=== PATIENT | female | born 1990 | race Caucasian/White ===

== ENCOUNTER → 2018-03-05 10:02 | Outpatient (CLI) | payer OTHER, SELFPAY | PROVIDERS: PCP Internal Medicine; Visit Provider Physician Assistant | DX: J02.9 Acute pharyngitis, unspecified (principal) | CPT/HCPCS: 87070; 87077; 87147 ==

== ENCOUNTER → 2018-07-12 09:27 | Outpatient (CLI) | payer OTHER, MEDICAID, SELFPAY ==
[2018-07-12 10:11] LABS: Add Manual Diff / Slide Review NO; Basophils Absolute Auto 100 /uL (0-100); Basophils Percent Auto 0.6 % (0-2); Eosinophils Absolute Auto 100 /uL (0-450); Eosinophils Percent Auto 0.9 % (2-4); Hematocrit 38.8 % (36-46); Hemoglobin 13.4 g/dL (12.0-16.0); Lymphocytes Absolute Auto 1900 /uL (1100-4500); Mean Corpuscular HGB Conc 34.6 % (30-36); Mean Corpuscular Hemoglobin 31.7 PG (26-34); Mean Corpuscular Volume 91.4 fL (80-100); Monocytes Absolute Auto 600 /uL (0-900); Monocytes Percent Auto 6.4 % (3-14); Neutrophils Absolute Auto 7300 /uL (1500-7000); Neutrophils Percent Auto 73.1 % (50-75); Platelet Count 226 X10^3/uL (150-400); Red Blood Cell Count 4.25 X10^6/uL (4.0-5.2); Red Cell Distribution Width 12.3 % (11.6-14.8); White Blood Cell Count 9.9 X10^3/uL (4.5-11.0)
[2018-07-12 10:37] LABS: Appearance Urine UA CLEAR; Bilirubin Urine UA NEGATIVE (NEGATIVE); Color Urine UA YELLOW; Glucose Urine UA NEGATIVE (Negative); Ketones Urine UA NEGATIVE (NEGATIVE); Leukocyte Esterase Urine UA NEGATIVE (NEGATIVE); Nitrite Urine UA NEGATIVE (Negative); Occult Blood Urine UA NEGATIVE (Negative); Protein Urine UA NEGATIVE (Negative); Specific Gravity Urine UA <=1.005 (1.000-1.035); Urobilinogen Urine UA 0.2 E.U./dL (0.2); pH Urine UA 6.5 (4.5-8.0)
[2018-07-12 11:03] LABS: Hepatitis B Surface Antigen NEGATIVE s/c (NEGATIVE); Rubella Antibody IgG 24.3 IU/mL (>15)
[2018-07-12 11:11] LABS: HIV 1 and 2 Antibody NEGATIVE (NEGATIVE); Hep C Virus Ab w/Reflex Quant NEGATIVE s/c (NEGATIVE)
[2018-07-13 15:06] LABS: RPR Screen Nonreactive (Nonreactive)
== END ==
PROVIDERS: PCP Internal Medicine; Visit Provider Obstetrics & Gynecology
DX: Z34.01 Encounter for supervision of normal first pregnancy, first trimester (principal)
CPT/HCPCS: 36415; 80055; 81003; 86703; 86787; 86803; 86850; 86900; 86901; 87077; 87086; 87147; 87186

== ENCOUNTER → 2018-08-24 11:53 | Outpatient (CLI) | payer OTHER, MEDICAID, SELFPAY ==
[2018-08-24 11:58] LABS: Bacteria Urine None Seen; WBC Urine None Seen (0-5/HPF)
[2018-08-24 12:29] LABS: Appearance Urine UA CLEAR; Bilirubin Urine UA NEGATIVE (NEGATIVE); Color Urine UA YELLOW; Glucose Urine UA NEGATIVE (Negative); Ketones Urine UA NEGATIVE (NEGATIVE); Leukocyte Esterase Urine UA NEGATIVE (NEGATIVE); Nitrite Urine UA NEGATIVE (Negative); Occult Blood Urine UA 1+ (Negative); Protein Urine UA NEGATIVE (Negative); Specific Gravity Urine UA <=1.005 (1.000-1.035); Urobilinogen Urine UA 0.2 E.U./dL (0.2)
[2018-08-24 12:57] LABS: Amorphous Sediment Urine 1+; Culture Indicated Urine Cult Not Indicated; RBC Urine 0-1/HPF (0-5/HPF); Squamous Epithelial Cell Urine 0-1 /HPF
== END ==
PROVIDERS: PCP Internal Medicine; Visit Provider Obstetrics & Gynecology
DX: Z34.92 Encounter for supervision of normal pregnancy, unspecified, second trimester (principal); R35.0 Frequency of micturition
CPT/HCPCS: 81001

== ENCOUNTER → 2018-09-06 16:54 | Outpatient (CLI) | payer OTHER, MEDICAID, SELFPAY ==
[2018-09-10 14:08] LABS: AFP, Serum 53.4 ng/mL; Calc Gestational Age 17.1; Cigarette Smoker N; Donated Egg NOT GIVEN; Donor Egg Age NOT GIVEN; Estriol, Free 1.17 ng/mL; Inhibin A, Dimeric 193 pg/mL; Maternal Ethnicity CAUCASIAN; Maternal Weight 141 lbs; Number of Fetuses NOT GIVEN; Previous Pregnancy Down Syndro NOT GIVEN; hCG, MoM 1.27; hCG, Serum 36.3 IU/mL
== END ==
PROVIDERS: Visit Provider Obstetrics & Gynecology
DX: Z34.82 Encounter for supervision of other normal pregnancy, second trimester (principal); Z3A.17 17 weeks gestation of pregnancy
CPT/HCPCS: 36415; 82105; 82677; 84702; 86336

== ENCOUNTER → 2018-09-27 15:10 | Outpatient (CLI) | payer OTHER, MEDICAID, SELFPAY ==
--- NOTE | 2018-09-27 15:11 | DI.US.S_ITS ---
PROCEDURE: US OB >= 14 WEEKS FETUS INDICATIONS: ANATOMY SURVEY OUTSIDE/PRIOR DATING DATA: Last menstrual period (LMP): 05/09/18. LMP-based estimated date of delivery (SHAYLEE): 02/13/19. First dating scan (date and location): 09/27/18. Estimated date of delivery (SHAYLEE) from first dating scan: 02/11/19. TECHNIQUE: Real-time scanning was performed of the fetus, with image documentation and biometric measurements. Endovaginal scanning: No [facility]PARISON: [facility], , OB >= 14 WEEKS FETUS, 09/06/2018, 16:46. FINDINGS: General: A single living intrauterine gestation is present. Presentation: Vertex. Placenta: Placental position is anterior, without previa. Amniotic fluid index: 15.0 cm, normal range is 5-24 cm. heart rate: 157 beats per minute. Maternal cervical canal: 4.6 cm long. Normal lower limit is 2.5 cm. Report any funneling of internal cervical os: % of canal length, shape (U or V), width or any U-shaped funneling. biometrics: Biparietal diameter: 19 weeks 6 days Head circumference: 20 weeks 3 days Abdominal circumference: 20 weeks 3 days Femur length: 20 weeks 3 days Estimated gestational age from initial scan: not applicable. Composite gestational age from present scan: 20 weeks 3 days Estimated weight and percentile: 353 g; 62nd percentile Measurement variability for biometric dating: +/- 7 days from 14 weeks to 15 weeks 6 days gestation, +/- 10 days from 16 weeks to 21 weeks 6 days gestation, +/- 2 weeks from 22 weeks to 27 weeks 6 days gestation, +/- 3 weeks for 28 weeks gestation or later. weight reference: 4500 g or EFW >90/95% is considered macrosomia or large for gestational age. EFW <10% is small for gestational age. EFW 5% or less is considered intra-uterine growth restriction. Anatomic survey: Neuro: Ventricles are non-dilated at less than 10 mm. Cisterna magna is normal at 3-11 mm. Cerebellum is normal in size and morphology. Nuchal skin fold: Normal at less than 6 mm between 14-21 weeks gestational age. Face: Nose and lips, facial profile are normal. Spine: No evidence for spina bifida. Heart: 4-chambered heart is present, with normal ventricular outflow tracts. Diaphragm: Diaphragm is intact. Stomach: Left-sided stomach is present. Kidneys: No hydronephrosis. Normal is less than 5 mm in 2nd trimester, less than 7 mm in 3rd trimester. Cord: 3-vessel cord has orthotopic insertion. Bladder: Normal in size. Extremities: All 4 extremities identified. IMPRESSION: 1. Single living IUP with mean composite gestational age of 20 weeks 3 days corresponding to ultrasound SHAYLEE of 02/11/19 2. Normal anatomic survey. Dictated by: Moshe Combs [facility] Interpreted: Lilian Frazier MD on 09/27/2018 at 17:06 Approved by: Lilian Frazier MD, PhD on 09/27/2018 at 18:04
== END ==
PROVIDERS: Visit Provider Obstetrics & Gynecology
DX: Z34.82 Encounter for supervision of other normal pregnancy, second trimester (principal); Z3A.20 20 weeks gestation of pregnancy
CPT/HCPCS: 76811

== ENCOUNTER → 2018-11-02 15:34 | Outpatient (CLI) | payer OTHER, MEDICAID, SELFPAY ==
[2018-11-02 17:55] LABS: GTT (PREG) 1 Hour PP 50gm Dose 88 mg/dL (76-139)
== END ==
PROVIDERS: Visit Provider Obstetrics & Gynecology
DX: Z34.82 Encounter for supervision of other normal pregnancy, second trimester (principal)
CPT/HCPCS: 36415; 82950; 85014; 85018; 86850

== ENCOUNTER 2018-11-10 16:28 | Outpatient (CLI) | payer OTHER, MEDICAID, SELFPAY | END 2018-11-10 17:35 | disposition home or self-care (01) | LOC: OB 11-11 15:29 | PROVIDERS: Visit Provider Obstetrics & Gynecology | DX: O36.8120 Decreased fetal movements, second trimester, not applicable or unspecified (principal); Z3A.26 26 weeks gestation of pregnancy | CPT/HCPCS: 59025; G0378; G0379 ==

== ENCOUNTER → 2019-01-18 09:40 | Outpatient (CLI) | payer OTHER, MEDICAID, SELFPAY ==
[2019-01-19 10:05] LABS: Strep Grp B PCR NEG for Grp B Strep
== END ==
PROVIDERS: Visit Provider Obstetrics & Gynecology
DX: Z34.83 Encounter for supervision of other normal pregnancy, third trimester (principal); Z36.85 Encounter for antenatal screening for Streptococcus B
CPT/HCPCS: 87653

== ENCOUNTER 2019-01-21 02:32 | Observation (INO) | payer OTHER, MEDICAID, SELFPAY ==
[2019-01-21] MEDS: NIFEdipine 10 MG CAPSULE PO ×4 (03:36→04:37)
--- NOTE | 2019-01-21 12:40 | P.TNLD_ITS ---
Visit Information Visit Information Date of evaluation: 01/21/19 Primary OB Provider: Mikala Nicole On-call OB Provider: Mikala Nicole Reason for Evaluation: Yes pre-term labor [facility] Surgical History (Updated 07/19/18 @ 05:20 by Mikala Nicole MD) History of third molar tooth extraction Family History (Updated 12/26/15 @ 00:00 by Conversion Provider) Father Age: 55 Diabetes mellitus Hypertension Grandmother Cancer Mother Age: 57 Hypertension High cholesterol Grandfather Heart disease Grandmother Diabetes mellitus Heart disease Stroke Social History Smoking Status: Never smoker Family History (Updated 12/26/15 @ 00:00 by Conversion Provider) Father Age: 55 Diabetes mellitus Hypertension Grandmother Cancer Mother Age: 57 Hypertension High cholesterol Grandfather Heart disease Grandmother Diabetes mellitus Heart disease Stroke Social History Smoking Status: Never smoker Evaluation Evaluation Baseline heart rate: 145 Variability: Moderate (11-25) monitor accelerations: Present monitor decelerations: Absent Contraction Frequency (minutes): 6 Uterine Contraction Intensity: Mild Cervical dilation (cm): 2 Cervical effacement (%): 75 Diagnosis, Plan/Disposition Final Diagnosis (1) labor: Current Visit: No Status: Acute Plan/Disposition Plan: Assessment: 28 year 2 para 1 at 34 weeks gestation with labor Plan: Patient discharged home after nifedipine protocol and contractions spacing Follow-up as scheduled for her OB appointment OB Disposition: home
== END 2019-01-21 06:02 | disposition home or self-care (01) ==
LOC: LABOR 02:34
PROVIDERS: Admitting Provider Obstetrics & Gynecology; Visit Provider Obstetrics & Gynecology
DX: O60.03 Preterm labor without delivery, third trimester (principal); Z3A.34 34 weeks gestation of pregnancy
CPT/HCPCS: 59025; 59050; G0378; G0379

== ENCOUNTER 2019-02-03 05:50 | Inpatient (IN) | payer OTHER, MEDICAID, SELFPAY ==
[2019-02-03] VITALS (7 sets, daily range): BP systolic 116–130; BP diastolic 60–77; PULSE 58–70; RESP 11–16; TEMP 36.2–36.7; O2SAT 99–100
[2019-02-03] MEDS: LACTATED RINGERS 1,000 ML 999 ML IV (06:34)
[2019-02-03 07:07] LABS: Add Manual Diff / Slide Review NO; Basophils Absolute Auto 100 /uL (0-100); Basophils Percent Auto 0.6 % (0-2); Eosinophils Absolute Auto 100 /uL (0-450); Eosinophils Percent Auto 1.2 % (2-4); Hematocrit 40.9 % (36-46); Hemoglobin 14.1 g/dL (12.0-16.0); Lymphocytes Absolute Auto 2600 /uL (1100-4500); Lymphocytes Percent Auto 25.1 % (25-40); Mean Corpuscular HGB Conc 34.4 % (30-36); Mean Corpuscular Hemoglobin 31.4 PG (26-34); Mean Corpuscular Volume 91.3 fL (80-100); Monocytes Absolute Auto 800 /uL (0-900); Monocytes Percent Auto 7.6 % (3-14); Neutrophils Absolute Auto 6900 /uL (1500-7000); Neutrophils Percent Auto 65.5 % (50-75); Platelet Count 163 X10^3/uL (150-400); Red Blood Cell Count 4.48 X10^6/uL (4.0-5.2); Red Cell Distribution Width 13.7 % (11.6-14.8); White Blood Cell Count 10.5 X10^3/uL (4.5-11.0)
--- NOTE | 2019-02-03 07:21 | SUR.OPER ---
Supine on Padded OR bed, head on pillow, safety belt at thigh, arms secured on padded arm boards at <90 degrees abduction. Bump under right buttock. Legs uncrossed with pillow under knees, gel pad to heels, tape over blanket to lower legs.
[2019-02-03] MEDS: CITRIC ACID/SODIUM CITRATE 15 ML SOLUTION 30 ML PO (07:45)
[2019-02-03] MEDS: CEFAZOLIN 2 GM/100 ML FROZ.PIGGY IV (07:55)
--- NOTE | 2019-02-03 08:29 | SUR.OPER ---
Viable male born at 08:29. Cord blood x2 and placenta sent with L&D RN.
[2019-02-03] MEDS: ONDANSETRON 4 MG/2 ML INJ IV ×3 (09:32→20:51)
--- NOTE | 2019-02-03 09:44 | P.OP_ITS ---
Operative Date/Time/Diagnoses Date of procedure: 02/03/19 Time of procedure: 09:44 Pre-op diagnosis: Previous section Estimated gestational age of 39 weeks Post-op diagnosis: same Procedure & Clinicians Procedure: Procedures Operation Date: 02/03/19 07:45 Actual Procedures Side Surgeon p Section- Repeat Mikala Nicole MD Indications: Previous section Estimated gestational age of 39 weeks Surgeon: Mikala Nicole Department Assistant: Kristen Taylor Anesthesia Type: Spinal (With Duramorph) Operative Notes Findings: Live male infant in the direct occiput anterior presentation Normal uterus, and ovaries Left tube with a paratubal cyst Normal right 2 Closure Type: primary Specimen(s): other (Cord bloods, placenta, left paratubal cyst) Applied: catheter Estimated blood loss (mL): 500 Blood products transfused: none Procedure in detail: The patient was taken to the operating room where she was placed in the seated position. Spinal anesthesia was administered. She was then placed in the dorsal supine position with a leftward tilt. She was prepped and draped in the usual sterile fashion. A timeout was performed. After spinal analgesia was found to be adequate, an elliptical incision was made around the previous incision and the incision was excised. The incision was then carried through to the underlying layer fascia. The fascia was nicked in the midline, and the incision extended bilaterally with the Mercado scissors. The superior aspect of the fascial incision was grasped with a [place] clamps, elevated, and the underlying rectus muscles dissected off sharply and bluntly. Attention was then turned to the inferior aspect of this incision which in a similar fashion was grasped with a [place] clamps, elevated, and the underlying rectus muscles di ssected off sharply and bluntly. The rectus muscles were in the midline. The peritoneum was identified, grasped between 2 hemostats, and entered sharply with the Metzenbaum scissors. This incision was extended superiorly and inferiorly with good visualization of the bladder. The bladder blade was inserted. The vesicouterine peritoneum was identified, grasped with the pickup, and entered sharply with the Metzenbaum scissors. This incision was extended bilaterally, and the bladder flap was created digitally. The bladder blade was reinserted. The lower uterine segment was incised in a transverse fashion with the scalpel. Upon entering the amniotic sac there was a small amount of clear amniotic fluid. The infant's head was delivered without difficulty. The nose and mouth were suctioned with bulb suction. The remainder of the body delivered without difficulty. The cord was double clamped and cut. The was handed off to waiting RN and RT. The placenta was delivered manually. The uterus was cleared of all clots and debris. The uterine incision was repaired with #1 chromic in a running interlocking fashion, and a second layer the same suture was used for an imbricating layer. Hemostasis was achieved. The tubes and ovaries were examined. There was a 2 cm x 2 cm left paratubal cyst and this was removed with the Bovie. Otherwise the tubes and ovaries were normal. The gutters were cleared of all clots and debris. The bladder flap was reapproximated using 2-0 Vicryl in a running fashion. The parietal peritoneum was closed using 2-0 Vicryl in a running fashion. The fascia was reapproximated using 0 Vicryl in a running fashion. Subcutaneous layer was copiously irrigated with warm normal saline. 3 simple interrupted sutures of 3-0 Vicryl were placed to reapproximate the subcutaneous layer. The skin was closed with 4-0 undyed Vicryl in a subcuticular fashion. Steri-Strips were placed. An Aquacel dressing was placed. The uterus was expressed of a small amount of old blood. Sponge, lap, and instrument counts were correct ?-2. The patient tolerated the procedure well, and was taken to PACU in stable condition. Complications: none Post-operative Condition: stable Disposition: PACU Plan for aftercare: To the center after recovery
[2019-02-03] MEDS: LACTATED RINGERS 1,000 ML 42 ML IV (09:46)
[2019-02-03] MEDS: METOCLOPRAMIDE 10 MG/2 ML INJ IV ×3 (09:50→22:01)
[2019-02-03] MEDS: KETOROLAC 30 MG/ML VIAL IV ×2 (15:03→20:52)
[2019-02-03] MEDS: LANOLIN OINT 7 GM 1 APPLIC TOP (15:09)
[2019-02-03] MEDS: DEXTROSE 5%-NS W/KCL 20MEQ 1,000 ML 100 MEQ IV (15:12)
[2019-02-03] MEDS: LACTATED RINGERS 1,000 ML 125 ML IV (19:50)
[2019-02-03 20:09] LABS: Blood Urea Nitrogen 6 mg/dL (7-17); Calcium 8.5 mg/dL (8.4-10.2); Carbon Dioxide 26 mmol/L (22-32); Chloride 104 mmol/L (98-107); Estimated Glomerular Filt Rate > 60.0 mL/min (>60); Glucose 98 mg/dL (70-100); HEMOLYSIS < 15 (0-50); Sodium 136 mmol/L (137-145)
[2019-02-03] MEDS: CITRIC ACID/SODIUM CITRATE 15 ML SOLUTION PO ×2 (20:21→20:51)
[2019-02-03] MEDS: SCOPOLAMINE 1 PATCH TOP (20:52)
[2019-02-03] MEDS: NALBUPHINE 20 MG/ML AMPUL 5 MG IV (22:14)
[2019-02-04] MEDS: ONDANSETRON 4 MG/2 ML INJ IV (03:20)
[2019-02-04] MEDS: KETOROLAC 30 MG/ML VIAL IV (03:20)
[2019-02-04] MEDS: NALBUPHINE 20 MG/ML AMPUL 5 MG IV (03:20)
[2019-02-04 06:48] LABS: Hematocrit 36.1 % (36-46); Hemoglobin 12.4 g/dL (12.0-16.0)
--- NOTE | 2019-02-04 08:06 | PM.OBDS.1 ---
Discharge Providers Provider Date of admission: 02/03/19 05:50 Discharge Date: 02/04/19 Consults: 02/03/19 10:28 Consult to Asbestos Textile Supervisor Routine Comment: Discharge provider: Kristen Taylor MD Summary Hospital Course Date Patient Seen: 02/04/19 Time Patient Seen: 08:17 Procedures: Repeat low-transverse section Peripartum Data Delivery Method: Section (Prior ) Procedures: Repeat low-transverse section complications: none [place] 1: Gender: Male Disposition of : home Discharge Diagnosis (1) Delivery by section: Status: Acute Status at Discharge Cognitive/behavioral status at discharge: oriented Functional status at discharge: independent ambulation Overall status at discharge: patient is progressing back to baseline Time Spent with Patient Time attestation: Total time spent providing and/or coordinating discharge services: Time spent: Less than 30 minutes Objective Labs Result Diagrams: 02/04/19 06:25 02/03/19 19:52 Labs: Laboratory Results - last 24 hr 02/03/19 02/03/19 02/04/19 06:30 19:52 06:25 Hgb 12.4 Hct 36.1 Sodium 136 L Potassium 4.0 Chloride 104 Carbon Dioxide 26 BUN 6 L Creatinine 0.50 L Estimated GFR > 60.0 BUN/Creatinine Ratio 12.0 Glucose 98 Calcium 8.5 Blood Type O Negative Antibody Screen Positive Antibody Identification Anti-D Exam Vital Signs (past 8 hours): Blood pressure 118/72, pulse 65, temperature 98.3? Oxygen Delivery Method Room Air Narrative Exam Narrative: Patient's abdomen is soft, nontender. Minimal distention. Uterus is firm, at U, minimally tender. Dressing is dry. Extremities with trace edema and nontender. Discharge Plan Discharge Plan Patient Disposition: Home Discharge Med Rec/Prescriptions Prescriptions: New oxycodone-acetaminophen 5-325 mg Tablet 2 tab PO Q4HR PRN (Reason: Pain, Severe (7-10)) Qty: 30 RF: 0 ibuprofen 600 mg Tablet 600 mg PO Q6HR PRN (Reason: As Needed For Fever/Mild Pain) Qty: 30 RF: 0 docusate sodium 250 mg Capsule 250 mg PO DAILY Qty: 14 RF: 0 Continued 1 tab tablet 1 tab PO DAILY RF: 0 Follow up/Referrals: Mikala Nicole MD [Physician] - 1 Week ( remove aquacel) Provider Discharge Instructions Diet: Regular Activity: nothing in vagina, do not lift over 20 pounds for 4 weeks Skin/Wound/Dressing Care Report to your healthcare provider any signs of infection, such as:: chills, fever and increased pain Dressing: leave dressing in place for 1 week
[2019-02-04] MEDS: DOCUSATE 250 MG CAPSULE PO (08:53)
[2019-02-04] MEDS: IBUPROFEN 600 MG TABLET PO ×3 (08:53→23:00)
[2019-02-04] MEDS: PRENATAL VIT,CALC/IRON/FOLIC 1 TABLET 1 TAB PO (08:53)
--- NOTE | 2019-02-04 10:40 | P.PN_ITS ---
Subjective Subjective Date Patient Seen: 02/04/19 Time Patient Seen: 10:40 Interval history: Patient is postoperative day 1. Repeat section. She has been able to urinate since removing her catheter. Her pain is under control. She was having nausea and vomiting yesterday but it is finally improving. Breast-feeding is going well. Exam Vital Signs (past 8 hours): Blood pressure 118/72, pulse 65, temperature 98.3? Oxygen Delivery Method Room Air Narrative Exam Narrative: Abdomen is soft, nontender. Uterus is firm, at U, appropriately tender. Dressing is dry. Mild lochia. Extremities without edema and nontende r. Objective Labs Result Diagrams: 02/04/19 06:25 02/03/19 19:52 Labs: Laboratory Results - last 24 hr 02/03/19 02/04/19 19:52 06:25 Hgb 12.4 Hct 36.1 Sodium 136 L Potassium 4.0 Chloride 104 Carbon Dioxide 26 BUN 6 L Creatinine 0.50 L Estimated GFR > 60.0 BUN/Creatinine Ratio 12.0 Glucose 98 Calcium 8.5 Assessment & Plan Assessment and plan (1) Delivery by section: Current visit: Yes Status: Acute (2) Previous section: Current visit: No Status: Chronic Assessment & Plan narrative: Patient is doing well 1st day post repeat section. Routine post section care. Likely home in a.m.. Time Spent With Patient Time with patient: less than 15 minutes
[2019-02-05] MEDS: IBUPROFEN 600 MG TABLET PO (06:13)
[2019-02-05 07:23] VITALS: BP 120/77; PULSE 58; RESP 12; TEMP 36.4
[2019-02-05] MEDS: PRENATAL VIT,CALC/IRON/FOLIC 1 TABLET 1 TAB PO (08:38)
[2019-02-05] MEDS: OXYCODONE/ACETAMINOPHEN 5/325 TABLET 2 TAB PO (08:38)
[2019-02-05] MEDS: DOCUSATE 250 MG CAPSULE PO (08:38)
--- NOTE | 2019-02-05 09:13 | P.DS_ITS ---
Discharge Providers Provider Date of admission: 02/03/19 05:50 Discharge Date: 02/05/19 Consults: 02/03/19 10:28 Consult to Staff Genetic Counselor Routine Comment: Discharge provider: Kristen Taylor MD Summary Hospital Course Date Patient Seen: 02/05/19 Time Patient Seen: 09:15 Procedures: Repeat low-transverse section Hospital Course: Patient was admitted for repeat low-transverse section. She did well . She is passing gas, urinating and ambulating well. Her pain is under control. Peripartum Data Infant Delivery Method: Section (Repeat) Procedures: Repeat low-transverse section complications: none [employer] 1: Gender: Male Disposition of : home Discharge Diagnosis (1) Delivery by section: Status: Acute (2) Previous section: Status: Chronic Status at Discharge Cognitive/behavioral status at discharge: oriented Functional status at discharge: independent ambulation Overall status at discharge: patient is progressing back to baseline Time Spent with Patient Time attestation: Total time spent providing and/or coordinating discharge services: Objective Labs Result Diagrams: 02/04/19 06:25 02/03/19 19:52 Exam Vital Signs (past 8 hours): Blood pressure 109/68, pulse of 56, temperature 98.1? Oxygen Delivery Method Room Air Narrative Exam Narrative: Abdomen is soft, nontender. Uterus is firm, U -1, nontender. Dressing is dry. Mild lochia. Extremities without edema and nontender. Patient is O negative but the baby is also O negative so no RhoGAM indicated. Patient is rubella immune and received the Tdap in the 3rd trimester. Discharge Plan Discharge Plan Patient Disposition: Home Discharge Med Rec/Prescriptions Prescriptions: New oxycodone-acetaminophen 5-325 mg Tablet 2 tab PO Q4HR PRN (Reason: Pain, Severe (7-10)) Qty: 30 RF: 0 ibuprofen 600 mg Tablet 600 mg PO Q6HR PRN (Reason: As Needed For Fever/Mild Pain) Qty: 30 RF: 0 docusate sodium 250 mg Capsule 250 mg PO DAILY Qty: 14 RF: 0 Continued 1 tab tablet 1 tab PO DAILY RF: 0 Follow up/Referrals: Mikala Nicole MD [Physician] - 1 Week ( remove aquacel) Provider Discharge Instructions Diet: Regular Activity: nothing in vagina, do not lift over 20 pounds for 4 weeks Skin/Wound/Dressing Care Report to your healthcare provider any signs of infection, such as:: chills, fever and increased pain Dressing: leave dressing in place for 1 week
== END 2019-02-05 12:23 | disposition home or self-care (01) | DRG 540 ==
PROVIDERS: Admitting Provider Obstetrics & Gynecology; Visit Provider Obstetrics & Gynecology
PROC: 10D00Z1 Extraction of Products of Conception, Low, Open Approach (ICD-10-PCS; CPT 59514; principal; 2019-02-03 07:45)
DX: O34.219 Maternal care for unspecified type scar from previous cesarean delivery (principal); Z3A.39 39 weeks gestation of pregnancy; Z37.0 Single live birth; N83.8 Other noninflammatory disorders of ovary, fallopian tube and broad ligament
CPT/HCPCS: 36415; 59050; 59514; 80048; 85014; 85018; 85025; 86850; 86870; 86900; 86901; J0690; J1885; J2274; J2300; J2405; J2590; J2765; J3010

== ENCOUNTER → 2019-11-09 18:52 | Outpatient (ROUT) | payer OTHER, MEDICAID, SELFPAY ==
[2019-11-11 16:07] LABS: Candida species Negative (Negative); Gardnerella vaginalis Positive (Negative); Trichomoas vaginalis Negative (Negative)
== END ==
PROVIDERS: PCP Registered Nurse; Visit Provider Obstetrics & Gynecology
DX: N89.8 Other specified noninflammatory disorders of vagina (principal)
CPT/HCPCS: 87480; 87510; 87660

== ENCOUNTER → 2020-03-10 09:22 | Outpatient (CLI) | payer OTHER, MEDICAID, SELFPAY | PROVIDERS: PCP Registered Nurse; Visit Provider Physician Assistant | DX: N89.8 Other specified noninflammatory disorders of vagina (principal); R30.0 Dysuria | CPT/HCPCS: 87086; 87210 ==

== ENCOUNTER → 2020-05-10 14:14 | Outpatient (CLI) | payer OTHER, MEDICAID, SELFPAY ==
[2020-05-10 15:50] LABS: Add Manual Diff / Slide Review NO; Basophils Absolute Auto 100 /uL (0-100); Basophils Percent Auto 0.7 % (0-2); Eosinophils Absolute Auto 100 /uL (0-450); Eosinophils Percent Auto 1.3 % (2-4); Hematocrit 37.9 % (36-46); Hemoglobin 13.4 g/dL (12.0-16.0); Lymphocytes Absolute Auto 1800 /uL (1100-4500); Mean Corpuscular HGB Conc 35.5 % (30-36); Mean Corpuscular Hemoglobin 32.8 PG (26-34); Mean Corpuscular Volume 92.5 fL (80-100); Monocytes Absolute Auto 600 /uL (0-900); Monocytes Percent Auto 6.1 % (3-14); Neutrophils Absolute Auto 6500 /uL (1500-7000); Neutrophils Percent Auto 71.9 % (50-75); Platelet Count 223 X10^3/uL (150-400); Red Blood Cell Count 4.09 X10^6/uL (4.0-5.2); White Blood Cell Count 9.1 X10^3/uL (4.5-11.0)
[2020-05-10 16:55] LABS: Hepatitis B Surface Antigen NEGATIVE s/c (NEGATIVE); Rubella Antibody IgG 11.3 IU/mL (>15)
[2020-05-10 17:26] LABS: HIV 1 & 2 Ab/Ag 4th Gen Combo NEGATIVE (NEGATIVE); Hep C Virus Ab w/Reflex Quant NEGATIVE s/c (NEGATIVE)
[2020-05-11 08:08] LABS: RPR Screen Non Reactive (Non Reactive)
[2020-05-11 10:36] LABS: Varicella IgG Antibody 1692 index (Immune >165)
== END ==
PROVIDERS: PCP Registered Nurse; Referring Provider Obstetrics & Gynecology; Visit Provider Obstetrics & Gynecology
DX: Z34.81 Encounter for supervision of other normal pregnancy, first trimester (principal)
CPT/HCPCS: 36415; 80055; 86787; 86803; 87389

== ENCOUNTER → 2020-06-18 09:37 | Outpatient (CLI) | payer OTHER, MEDICAID, SELFPAY ==
[2020-06-18 10:14] LABS: Appearance Urine UA CLEAR; Bilirubin Urine UA NEGATIVE (NEGATIVE); Color Urine UA YELLOW; Glucose Urine UA NEGATIVE (Negative); Ketones Urine UA NEGATIVE (NEGATIVE); Leukocyte Esterase Urine UA NEGATIVE (NEGATIVE); Nitrite Urine UA NEGATIVE (Negative); Occult Blood Urine UA NEGATIVE (Negative); Protein Urine UA NEGATIVE (Negative); Specific Gravity Urine UA <=1.005 (1.000-1.035); Urobilinogen Urine UA 0.2 E.U./dL (0.2)
== END ==
PROVIDERS: PCP Registered Nurse; Referring Provider Obstetrics & Gynecology; Visit Provider Obstetrics & Gynecology
DX: Z34.81 Encounter for supervision of other normal pregnancy, first trimester (principal)
CPT/HCPCS: 81003; 87086

== ENCOUNTER → 2020-07-03 08:59 | Outpatient (CLI) | payer OTHER, MEDICAID, SELFPAY ==
[2020-07-06 13:45] LABS: AFP, Serum 53.4 ng/mL (.); Calc Gestational Age Ultrasound (.); Estriol, Free 1.38 ng/mL (.); Inhibin A, Dimeric 134.83 pg/mL (.); Inhibin A, MoM 0.83 (.); Maternal Ethnicity Caucasian (.); Maternal Weight 150 lbs (.); Number of Fetuses Triplets or greater (.); OSBR Risk 1 IN See interpretation. (.); Results Report (.); Test Results See interpretation. (.); hCG, MoM 0.89 (.); hCG, Serum 29658 mIU/mL (.)
== END ==
PROVIDERS: PCP Registered Nurse; Referring Provider Obstetrics & Gynecology; Visit Provider Obstetrics & Gynecology
DX: Z34.90 Encounter for supervision of normal pregnancy, unspecified, unspecified trimester (principal)
CPT/HCPCS: 36415; 82105; 82677; 84702; 86336

== ENCOUNTER → 2020-07-20 14:05 | Outpatient (CLI) | payer OTHER, MEDICAID, SELFPAY ==
--- NOTE | 2020-07-20 14:06 | DI.US.S_ITS ---
PROCEDURE: US OB >= 14 WEEKS FETUS INDICATIONS: ANATOMY OUTSIDE/PRIOR DATING DATA: Last menstrual period (LMP): 02/24/2020. LMP-based estimated date of delivery (SHAYLEE): 11/29/2020. First dating scan (date and location): [facility], 04/23/2020. Estimated date of delivery (SHAYLEE) from first dating scan: 12/06/2020. TECHNIQUE: Real-time scanning was performed of the fetus, with image documentation and biometric measurements. COMPARISON: [facility], , OB <= 14 WEEKS FETUS, 04/23/2020, 16:53. [facility], , OB <= 14 WEEKS FETUS, 05/08/2020, 9:00. [facility], , OB >= 14 WEEKS FETUS, 07/03/2020, 8:54. FINDINGS: General: A single live intrauterine gestation is present. Presentation: Transverse. Placenta: Placental position is posterior , without previa. Amniotic fluid index: 16.1 cm, normal range is 5-24 cm. heart rate: 141 beats per minute. Maternal cervical canal: 4.7 cm long. Normal lower limit is 2.5 cm. biometrics: Biparietal diameter: 4.6 cm equals 20 weeks 0 days Head circumference: 17.8 cm equals 20 weeks 2 days Abdominal circumference: 15.1 cm equals 20 weeks 2 days Femur length: 3.5 cm equals 20 weeks 6 days Estimated gestational age from initial scan: 20 weeks 1 day Composite gestational age from present scan: 20 weeks 3 days Estimated weight and percentile: 361 g, 69th percentile Measurement variability for biometric dating: +/- 7 days from 14 weeks to 15 weeks 6 days gestation, +/- 10 days from 16 weeks to 21 weeks 6 days gestation, +/- 2 weeks from 22 weeks to 27 weeks 6 days gestation, +/- 3 weeks for 28 weeks gestation or later. weight reference: 4500 g or EFW >90/95% is considered macrosomia or large for gestational age. EFW <10% is small for gestational age. EFW 5% or less is considered intra-uterine growth restriction. Anatomic survey: Neuro: Ventricles are non-dilated at less than 10 mm. Cisterna magna is normal at 3-11 mm. Cerebellum is normal in size and morphology. Nuchal skin fold: Normal at less than 6 mm between 14-21 weeks gestational age. Face: Nose and lips, facial profile are normal. Spine: No evidence for spina bifida. Heart: 4-chambered heart is present, with normal ventricular outflow tracts. Diaphragm: Diaphragm is intact. Stomach: Left-sided stomach is present. Kidneys: No hydronephrosis. Normal is less than 5 mm in 2nd trimester, less than 7 mm in 3rd trimester. Cord: 3-vessel cord has orthotopic insertion. Bladder: Normal in size. Extremities: All 4 extremities identified. IMPRESSION: A single live intrauterine is seen. No significant discrepancy is found between the estimated gestational age based on these images and the estimated gestational age based upon the given prior dating. No anatomic abnormalities are identified. Dictated by: Julián Genao M.D. on 07/21/2020 at 10:47 Approved by: Julián Genao M.D. on 07/21/2020 at 10:51
== END ==
PROVIDERS: PCP Registered Nurse; Referring Provider Obstetrics & Gynecology; Visit Provider Obstetrics & Gynecology
DX: Z34.82 Encounter for supervision of other normal pregnancy, second trimester (principal); Z3A.20 20 weeks gestation of pregnancy
CPT/HCPCS: 76811

== ENCOUNTER → 2020-07-31 16:53 | Outpatient (CLI) | payer OTHER, MEDICAID, SELFPAY ==
[2020-07-31 21:00] LABS: Urine N gonorrhoeae NOT DETECTED
[2020-07-31 21:05] LABS: Urine Chlamydia NOT DETECTED
== END ==
PROVIDERS: PCP Registered Nurse; Visit Provider Obstetrics & Gynecology
DX: Z34.82 Encounter for supervision of other normal pregnancy, second trimester (principal); Z3A.21 21 weeks gestation of pregnancy
CPT/HCPCS: 87491; 87591

== ENCOUNTER → 2020-08-28 14:37 | Outpatient (CLI) | payer OTHER, MEDICAID, SELFPAY ==
[2020-08-28 16:11] LABS: Hematocrit 36.4 % (36-46); Hemoglobin 12.5 g/dL (12.0-16.0)
[2020-08-28 16:38] LABS: GTT (PREG) 1 Hour PP 50gm Dose 116 mg/dL (76-139)
== END ==
PROVIDERS: PCP Registered Nurse; Referring Provider Obstetrics & Gynecology; Visit Provider Obstetrics & Gynecology
DX: Z34.82 Encounter for supervision of other normal pregnancy, second trimester (principal); Z3A.26 26 weeks gestation of pregnancy
CPT/HCPCS: 36415; 82950; 85014; 85018; 86850

== ENCOUNTER → 2020-08-30 15:58 | Outpatient (CLI) | payer OTHER, MEDICAID, SELFPAY ==
[2020-08-30] MEDS: COVID-19 VACC, Ad26(JANSSEN)/PF 0.5 ML IM (16:11)
== END ==
PROVIDERS: PCP Registered Nurse; Visit Provider Internal Medicine
DX: Z23 Encounter for immunization (principal)
CPT/HCPCS: 0031A; 91303

== ENCOUNTER → 2020-11-05 08:43 | Outpatient (CLI) | payer OTHER, MEDICAID, SELFPAY ==
[2020-11-06 07:56] LABS: Strep Grp B PCR NEG for Grp B Strep
== END ==
PROVIDERS: PCP Registered Nurse; Visit Provider Obstetrics & Gynecology
DX: Z34.83 Encounter for supervision of other normal pregnancy, third trimester (principal); Z3A.35 35 weeks gestation of pregnancy
CPT/HCPCS: 87653

== ENCOUNTER 2020-11-14 20:42 | Outpatient (CLI) | payer OTHER, MEDICAID, SELFPAY | END 2020-11-14 21:41 | disposition home or self-care (01) | LOC: LABOR 21:15 → OB 11-15 12:34 | PROVIDERS: PCP Registered Nurse; Referring Provider Obstetrics & Gynecology; Visit Provider Obstetrics & Gynecology | DX: O26.893 Other specified pregnancy related conditions, third trimester (principal); R10.9 Unspecified abdominal pain; Z3A.36 36 weeks gestation of pregnancy | CPT/HCPCS: 59025; G0378; G0379 ==

== ENCOUNTER 2020-11-27 17:08 | Inpatient (IN) | payer OTHER, MEDICAID, SELFPAY ==
--- NOTE | 2020-11-27 17:53 | PM.OBHP.1 ---
OB HPI Date/Time Date of admission: 11/27/20 Date Patient Seen: 11/27/20 Time Patient Seen: 17:53 History of Present Condition Chief complaint: Eval of Labor : 3 Para: 2 Estimated Date of Delivery: 11/29/20 Estimated Gestational Age (weeks): 38 Narrative: Malika Burks is a 30 year old female 002 at 38 weeks 5 days by LMP with a history of 2 prior sections, presenting and suspected early labor. The patient reports that she began having irregular contractions and pink spotting yesterday, and that approximately 2:30 p.m. her contractions became more regular, every 3-5 minutes and increasingly painful. She is now having back pain and pelvic pressure with her contractions, though no incisional pain. Baby is moving well and she denies loss of fluid. She reports that her has been otherwise uncomplicated, and reports that her 1st section was during labor as an emergency and her 2nd was scheduled. The patient denies any other obstetric complications, and denies any contributory medical, surgical, family, or social history. Indications Operative indications ( section): previous uterine surgery History of Present care: good care, initiated at week # and number of visits (11) Dating criteria: LMP confirmed by 1st trimester US Ultrasounds: normal mid trimester US Obstetrical complications: none Medical complications: none Preadmission Labs Blood type: 0 (-) negative -: Antibody screen: negative, GBS status: negative, HBsAG: negative, HIV: negative and RPR/VDLR: negative -: Rubella: not immune and Varicella: immune Quad screen: Normal 1 hr GTT: 116 Prior (ies) History: G1: 11/05/16, 38+5, pCS under general, Merlin Tran G2: 02/03/19, 38+4, [facility], M, Dr. Nicole Evaluation Evaluation Baseline heart rate: 130 Variability: Moderate (11-25) monitor accelerations: Present Monitor Decelerations: Variable (rare) Contraction Frequency (minutes): 5 Uterine Contraction Intensity: Strong/Firm Category of Tracing: Reactive Status: Category l Cervical dilation (cm): 1 Cervical effacement (%): 100 station: -1 Laboratory results: covid test pending [facility] Medical History Dumping syndrome Dysuria depression Rh negative status during Surgical History Anesthesia (~02/03/19) History of third molar tooth extraction Previous section (~02/03/19) S/P primary low transverse (~11/05/16) Family History Father Age: 56 Diabetes mellitus Hypertension Grandmother Cancer Hypertension Mother Age: 58 Hypertension High cholesterol Grandfather Heart disease Grandmother Diabetes mellitus Heart disease Stroke Grandfather Hypertension Kidney disease Kidney failure Social History marital status: number of children: 2 household members: spouse and children lives independently: Yes caregiver/support person: No pets and animals: Yes (X 2 cats : aware) education level: high school ([employer] : some) occupational status: unemployed Previous occupational history: Merchandising Execution Associate special kulwant needs: No Smoking Status: Former smoker (Quit 4-5 years ago) Tobacco: How many years used: 2 second hand exposure: No alcohol intake: former (pre- : occasional wine sometimes in the evening) substance use type: does not use Meds Home Medications and Allergies Home Medications Medication Instructions Recorded Confirmed Type 1 tab PO DAILY 01/21/19 11/19/20 History Allergies Allergy/AdvReac Type Severity Reaction Status Date / Time morphine Allergy Severe Nausea and Verified 11/19/20 16:22 vomiting X 2 days Post C/S 01/2019 Review of Systems Constitutional Constitutional: Reports system reviewed and no additional complaints, except as documented Cardiovascular Cardiovascular: Reports system reviewed and no additional complaints, except as documented Respiratory Respiratory: Reports system reviewed and no additional complaints, except as documented Gastrointestinal Gastrointestinal: Reports as per HPI Genitourinary Genitourinary: Reports as per HPI Neurologic Neurologic: Reports system reviewed and no additional complaints, except as documented Exam Vital Signs (past 8 hours): 120/66, HR 85 Narrative Exam Narrative: Patient breathing through contractions Const General: cooperative, healthy appearing, comfortable and well groomed Resp Effort & Inspection: normal respiratory effort Auscultation: clear to auscultation bilaterally Cardio Rate: regular rate Rhythm: regular rhythm GI Palpation: soft and No tender External Female Exam: normal external appearance Objective Labs Result Diagrams: 11/27/20 19:20 Assessment and Plan Assessment and Plan Assessment and Plan narrative: This patient is admitted with persistently painful contractions q3-5 despite IV hydration over two hours. An emergent section elsewhere on the floor enforced a period of expectant management, and the patient reports that her contractions remain the same frequency and are increasingly painful. The patient desires to proceed with section out of concern for uterine rupture. We discussed the risks and benefits of expectant management with ongoing hydration and repeat cervical exam, and discussed the risks of repeat section including damage to bowel, bladder and ureters, hemorrhage, and infection. The patient vocalized understanding, informed consent was obtained, and consents were signed. - CBC, T&S pending - covid test pending
[2020-11-27 19:27] LABS: Add Manual Diff / Slide Review NO; Basophils Absolute Auto 100 /uL (0-100); Basophils Percent Auto 0.5 % (0-2); Eosinophils Absolute Auto 100 /uL (0-450); Eosinophils Percent Auto 0.4 % (2-4); Hematocrit 39.7 % (36-46); Hemoglobin 13.8 g/dL (12.0-16.0); Lymphocytes Absolute Auto 2200 /uL (1100-4500); Lymphocytes Percent Auto 17.3 % (25-40); Mean Corpuscular HGB Conc 34.7 % (30-36); Mean Corpuscular Hemoglobin 31.2 PG (26-34); Mean Corpuscular Volume 89.7 fL (80-100); Monocytes Absolute Auto 700 /uL (0-900); Monocytes Percent Auto 5.9 % (3-14); Neutrophils Absolute Auto 9600 /uL (1500-7000); Neutrophils Percent Auto 75.9 % (50-75); Platelet Count 167 X10^3/uL (150-400); Red Blood Cell Count 4.42 X10^6/uL (4.0-5.2); Red Cell Distribution Width 13.7 % (11.6-14.8); White Blood Cell Count 12.6 X10^3/uL (4.5-11.0)
[2020-11-27] MEDS: LACTATED RINGERS 1,000 ML 100 ML IV ×3 (19:30→21:36)
[2020-11-27] MEDS: CITRIC ACID/SODIUM CITRATE 15 ML SOLUTION 30 ML PO (20:20)
[2020-11-27 20:36] LABS: COVID19 -Nasal RAPID Negative (Negative)
[2020-11-27] MEDS: CEFAZOLIN 1 GM VIAL 2 GM IV (21:00)
[2020-11-27 21:19] VITALS: PULSE 112; RESP 32
[2020-11-27 21:25] LABS: COVID19 - ADMIT (NP swab/PCR) Negative (Negative)
--- NOTE | 2020-11-27 21:27 | SUR.OPER ---
viable baby girl born at 2118, placenta delivered at 2121, 8/9, cord blood and placenta taken to OB by OB rn
[2020-11-27 21:38] VITALS: BP 128/74
[2020-11-27] MEDS: TRANEXAMIC ACID 1,000 MG in SODIUM CHLORIDE 0.9% 100 ML 200 ML IV (21:41)
[2020-11-27 22:24] VITALS: BP 106/61; PULSE 91; RESP 19; TEMP 37.2; O2SAT 100
[2020-11-27 22:29] VITALS: BP 90/50; PULSE 88; RESP 18; O2SAT 100
[2020-11-27 22:34] VITALS: BP 108/55; PULSE 89; RESP 17; O2SAT 100
[2020-11-27 22:39] VITALS: BP 112/52; PULSE 82; RESP 18; O2SAT 100
--- NOTE | 2020-11-27 22:48 | PM.OBCS.1 ---
Operative Date/Time/Diagnoses Date of procedure: 11/27/20 Time of procedure: 21:00 Pre-op diagnosis: prior section x2, latent labor Post-op diagnosis: same Procedure & Clinicians Procedure: repeat section Same procedure as scheduled: Yes Indications: prior CS x2 at term, latent labor Surgeon: Keisha Agudelo Environmental Educator: Shirin Perez Reason for Environmental Educator: Assistance with retraction, reduction of scar tissue Anesthesia Type: Spinal Operative Notes Findings: Normal uterus, tubes, and ovaries. Moderate scar tissue throughout. Female infant in cephalic presentation, apgars 8+9, weight 6#1 Closure Type: primary Specimen(s): cord blood Intraoperative meds administered: Acetaminophen, Pitocin and Tranexamic acid Estimated Blood Loss (mL): 500 Blood products transfused: none Procedure in detail: EBL: 500ccs Fluids:2600ccs LR UOP: 300ccs clear urine Procedures: The patient was taken to the operating room where spinal anesthesia was placed and found to be adequate. She was prepped and draped in the normal sterile fashion in the dorsal supine position with a leftward tilt. A Pfannenstiel skin incision was made through the prior incision with a scalpel and carried through to the underlying layer of fascia. The fascia was incised in the midline and the incision extended laterally with Mercado scissors. The superior aspect of this incision was grasped with Rehana clamps, elevated, and the underlying rectus muscles dissected off with the curved Mercado scissors. Attention was then turned to the inferior aspect of this incision which, in a similar fashion, was grasped, tented up with the Rehana clamps, and the rectus muscles dissected off bluntly and with the curved Mercado scissors. The rectus muscles were then in the midline using snaps and the scalpel, with careful reduction of scar tissue. The peritoneum was identified and entered bluntly during this dissection. The peritoneal incision was extended superiorly and inferiorly with good visualization of the bladder. The bladder blade was inserted and the vesicouterine peritoneum identified, grasped with pickups, and entered sharply with the Metzenbaum scissors. This incision was extended laterally, and the bladder flap created digitally. The bladder blade was then reinserted and the lower uterine segment incised in transverse fashion with the scalpel. The uterine incision was bluntly extended laterally. The bladder blade was removed, and the infant's head delivered atraumatically. After 30 seconds of delayed cord clamping, the cord was clamped and cut. The nose and mouth were suctioned as needed with a bulb syringe, and the infant was handed off to awaiting pediatricians. The placenta was then removed spontaneously, and the uterus was exteriorized and cleared of all clots and debris. The uterine incision was repaired with 1-0 chromic in a running, locked fashion and a 2nd layer of the same suture was used to obtain excellent hemostasis. The uterus was returned to the abdomen, and the gutters were cleared of all clots and debris. Oozing at the site of prior scar tissue reduction was noted in several areas, and TXA was administered. Hemostasis was acheived with figure of 8 sutures. The bladder flap was closed with 2-0 Vicryl in a running fashion, the peritoneum was closed with 3-0 Vicryl, and the fascia reapproximated with 0 Vicryl in a running fashion. The subcutaneous layer was placed with 3 0 Vicryl in an interrupted fashion and the skin was closed with 4-0 biosyn in a running fashion. The patient tolerated the procedure well sponge lap and needle counts were correct x2. 2 g of Ancef were given at commencement of the case. The patient was taken to the recovery room in stable condition. Complications: none [place] Baby Tiffanie: Gender: Female Presentation: vertex Position: Left Occiput Anterior Placental Delivery Description: Spontaneous Cord Vessel Description: 3 Vessels score (1 min): 8 score (5 min): 9 weight: 6 lb 1 oz Post-operative Condition: stable Disposition: PACU Aftercare: routine postop
[2020-11-27] MEDS: ONDANSETRON 4 MG/2 ML INJ IV (23:41)
[2020-11-28] MEDS: diphenhydrAMINE 50 MG/ML VIAL (00:49)
[2020-11-28] MEDS: FAMOTIDINE 20 MG/2 ML VIAL IV (00:49)
[2020-11-28] MEDS: METOCLOPRAMIDE 10 MG/2 ML INJ IV (02:06)
[2020-11-28] MEDS: PROCHLORPERAZINE 10 MG/2 ML VIAL 5 MG IV (02:13)
[2020-11-28 06:52] LABS: Add Manual Diff / Slide Review NO; Basophils Absolute Auto 0 /uL (0-100); Basophils Percent Auto 0.2 % (0-2); Eosinophils Absolute Auto 0 /uL (0-450); Hematocrit 36.2 % (36-46); Hemoglobin 12.4 g/dL (12.0-16.0); Lymphocytes Absolute Auto 1000 /uL (1100-4500); Lymphocytes Percent Auto 6.6 % (25-40); Mean Corpuscular HGB Conc 34.2 % (30-36); Mean Corpuscular Hemoglobin 30.9 PG (26-34); Mean Corpuscular Volume 90.2 fL (80-100); Monocytes Absolute Auto 600 /uL (0-900); Monocytes Percent Auto 3.9 % (3-14); Neutrophils Absolute Auto 14300 /uL (1500-7000); Neutrophils Percent Auto 89.3 % (50-75); Platelet Count 167 X10^3/uL (150-400); Red Blood Cell Count 4.02 X10^6/uL (4.0-5.2); Red Cell Distribution Width 13.7 % (11.6-14.8)
[2020-11-28] MEDS: DOCUSATE 250 MG CAPSULE PO (09:41)
[2020-11-28] MEDS: ACETAMINOPHEN 325 MG TABLET 650 MG PO ×3 (09:41→22:07)
[2020-11-28] MEDS: IBUPROFEN 600 MG TABLET PO ×3 (09:42→22:07)
--- NOTE | 2020-11-28 11:41 | P.PNOB_ITS ---
Subjective - OB Subjective Patient comments: no complaints, pain well controlled and tolerating diet baby status: doing well feeding status: exclusively breast feeding Narrative: This patient is postop day 1 status post repeat history of 2 prior sections in the setting of early labor. The patient reports feeling well today, with good p.o. pain control, tolerating a p.o. diet, ambulating, voiding. Mild lochia, has not yet passed flatus. Date Patient Seen: 11/28/20 Time Patient Seen: 11:25 Exam Vital Signs (past 8 hours): 107/67, hr 75 Oxygen Delivery Method Room Air Const General: cooperative, healthy appearing, comfortable and well groomed Resp Effort & Inspection: normal respiratory effort Auscultation: clear to auscultation bilaterally Cardio Rate: regular rate Rhythm: regular rhythm GI Inspection: incision (Clean, dry, intact, covered by Aquacel) Palpation: soft and No tender Extrem General: normal to inspection Objective Labs Result Diagrams: 11/28/20 06:40 Labs: Laboratory Results - last 24 hr 11/27/20 11/27/20 11/27/20 18:05 19:20 19:20 WBC 12.6 H RBC 4.42 Hgb 13.8 Hct 39.7 MCV 89.7 MCH 31.2 MCHC 34.7 RDW 13.7 Plt Count 167 Neut % (Auto) 75.9 H Lymph % (Auto) 17.3 L [place] % (Auto) 5.9 Eos % (Auto) 0.4 L Baso % (Auto) 0.5 Neut # (Auto) 9600 H Lymph # (Auto) 2200 [place] # (Auto) 700 Eos # (Auto) 100 Baso # (Auto) 100 SARS-CoV-2 (PCR) Negative Blood Type O Negative Antibody Screen Positive Antibody Identification Anti-D 11/27/20 11/28/20 20:15 06:40 WBC 16.0 H RBC 4.02 Hgb 12.4 Hct 36.2 MCV 90.2 MCH 30.9 MCHC 34.2 RDW 13.7 Plt Count 167 Neut % (Auto) 89.3 H Lymph % (Auto) 6.6 L [place] % (Auto) 3.9 Eos % (Auto) 0.0 L Baso % (Auto) 0.2 Neut # (Auto) 19161 H Lymph # (Auto) 1000 L [place] # (Auto) 600 Eos # (Auto) 0 Baso # (Auto) 0 SARS-CoV-2 (PCR) Negative Blood Type Antibody Screen Antibody Identification Assessment & Plan Plan day: 1 plan OB: routine postop care Comments: This patient is postop day 1, recovering appropriately and meeting postop goals well. Encouraged to ambulate. Anticipate discharge tomorrow. Time Spent With Patient Time: Total time spent is greater than 50% in coordination of care (as documented) at patient's floor/unit and/or counseling patient: Time with patient: 15-24 minutes
[2020-11-28] MEDS: LANOLIN OINT 7 GM 1 APPLIC TOP (22:07)
[2020-11-29] MEDS: IBUPROFEN 600 MG TABLET PO (04:22)
[2020-11-29] MEDS: ACETAMINOPHEN 325 MG TABLET 650 MG PO (04:22)
[2020-11-29] MEDS: DOCUSATE 250 MG CAPSULE PO (09:08)
--- NOTE | 2020-11-29 09:47 | PM.OBDS.1 ---
Discharge Providers Provider Date of admission: 11/27/20 17:08 Discharge Date: 11/29/20 Primary care physician: Piotr Anna ND Consults: 11/27/20 22:51 Consult to [place] [employer] Tester Routine Comment: Discharge provider: Keisha Agudelo MD Summary Hospital Course Date Patient Seen: 11/29/20 Time Patient Seen: 09:15 Diagnoses: Repeat section Hospital Course: This patient is a 30-year-old who was admitted in early labor with consistent painful contractions despite IV hydration, having made slight cervical change since the clinic in with spotting. Patient was taken for 3rd repeat section at 38 weeks 5 days. Her delivery and postoperative course were uncomplicated, and she was discharged on postoperative day 2 after meeting postoperative goals. Peripartum Data Infant Delivery Method: Section complications: none [place] 1: Gender: Female Disposition of : home Status at Discharge Cognitive/behavioral status at discharge: oriented Functional status at discharge: independent ambulation Overall status at discharge: patient is progressing back to baseline Time Spent with Patient Time attestation: Total time spent providing and/or coordinating discharge services: Objective Labs Result Diagrams: 11/28/20 06:40 Exam Vital Signs (past 8 hours): 121/59, heart rate 78, afebrile Oxygen Delivery Method Room Air Narrative Exam Narrative: Patient well-appearing, ambulating about room. Reports voiding, passing flatus, mild lochia, tolerating p.o.. No chest pain, trouble breathing, headaches, visual changes. Const General: cooperative, healthy appearing and comfortable Resp Effort & Inspection: normal respiratory effort Auscultation: clear to auscultation bilaterally Cardio Rate: regular rate Rhythm: regular rhythm GI Inspection: incision (Clean, dry, intact, covered by Aquacel) Palpation: soft and No tender Extrem General: normal to inspection Discharge Plan Discharge Plan Patient Disposition: Home Discharge orders & Medications Prescriptions: New oxycodone 5 mg tablet 5 mg PO Q6H PRN (Reason: pain) Qty: 14 RF: 0 Continued 1 tab tablet 1 tab PO DAILY RF: 0 Follow up/Referrals: Mikala Nicole MD [Physician] - (incision check on 12/03/20 @ 3:15pm with Dr. Nicole) Diet/Activity/Treatments Diet: Regular Activity: Nothing in the vagina for 6 weeks. No lifting more than 10 lbs for 6 weeks. If you have increasing bleeding, fevers, chills, nausea, vomiting, abdominal pain, chest pain, headaches, visual changes, or any other symptoms, call or come to the emergency room. Skin/Wound/Dressing Care Report to your healthcare provider any signs of infection, such as:: chills, fever, night sweats, increased pain, unusual drainage and unusual redness Visit Report/Discharge Packet Instructions: DI for , DI for Prescription Opioid Use Stand Alone Forms: Discharge: Care Discharge Data Primary Care Provider: Piotr Anna
[2020-11-29] MEDS: MEASLES,MUMPS,RUBELLA VACC/PF 0.5 ML VIAL SUBCUT (10:58)
== END 2020-11-29 11:20 | disposition home or self-care (01) | DRG 540 ==
PROVIDERS: Obstetrics & Gynecology; Admitting Provider Obstetrics & Gynecology; PCP Registered Nurse; Referring Provider Obstetrics & Gynecology; Visit Provider Obstetrics & Gynecology
PROC: 10D00Z1 Extraction of Products of Conception, Low, Open Approach (ICD-10-PCS; CPT 59514; principal; 2020-11-27 18:15)
DX: O34.219 Maternal care for unspecified type scar from previous cesarean delivery (principal); Z3A.38 38 weeks gestation of pregnancy; Z37.0 Single live birth; O60.14X0 Preterm labor third trimester with preterm delivery third trimester, not applicable or unspecified; Z20.822 Contact with and (suspected) exposure to COVID-19
CPT/HCPCS: 36415; 59050; 59514; 85025; 86850; 86870; 86900; 86901; 87635; C9803; G0379; J0690; J0780; J1100; J1200; J2274; J2405; J2590; J2765; J3010

== ENCOUNTER → 2023-02-03 11:54 | Outpatient (CLI) | payer OTHER, MEDICAID, SELFPAY ==
[2023-02-03 12:35] LABS: Hematocrit 42.1 % (36-46); Hemoglobin 14.6 g/dL (12.0-16.0); Mean Corpuscular HGB Conc 34.7 % (30-36); Mean Corpuscular Hemoglobin 31.4 PG (26-34); Mean Corpuscular Volume 90.5 fL (80-100); Platelet Count 239 X10^3/uL (150-400); Red Blood Cell Count 4.65 X10^6/uL (4.0-5.2); Red Cell Distribution Width 12.6 % (11.6-14.8); White Blood Cell Count 10.5 X10^3/uL (4.5-11.0)
[2023-02-03 13:02] LABS: Alanine Aminotransferase 23 IU/L (<35); Albumin 4.7 g/dL (3.5-5.0); Albumin Globulin Ratio 1.5 (1.0-2.8); Alkaline Phosphatase 46 U/L (38-126); Aspartate Aminotransferase 24 IU/L (14-36); BUN Creatinine Ratio 15.3 (6-22); Bilirubin Total 0.8 mg/dL (0.2-1.3); Blood Urea Nitrogen 11 mg/dL (7-17); Calcium 9.3 mg/dL (8.4-10.2); Carbon Dioxide 24 mmol/L (22-32); Chloride 104 mmol/L (98-107); Cholesterol 179 mg/dL (140-199); Estimated Glomerular Filt Rate > 60 mL/min (>60); Globulin 3.1 g/dL (1.7-4.1); Glucose 89 mg/dL (70-100); HDL Cholesterol 52 mg/dL (40-60); HEMOLYSIS < 15 (0-50); LDL Cholesterol Calculated 113 mg/dL (<100); Magnesium 1.9 mg/dL (1.6-2.3); Potassium 4.1 mmol/L (3.4-5.1); Sodium 138 mmol/L (137-145); Total Protein 7.8 g/dL (6.3-8.2); Triglycerides 70 mg/dL (35-150)
[2023-02-03 13:16] LABS: Free T4, Direct Thyroxine 1.15 ng/dL (0.78-2.19)
[2023-02-03 13:30] LABS: Thyroid Stimulating Hormone 1.78 uIU/mL (0.47-4.68)
== END ==
PROVIDERS: PCP Registered Nurse Diabetes Educator; Referring Provider Registered Nurse Diabetes Educator; Visit Provider Registered Nurse Diabetes Educator
DX: R42 Dizziness and giddiness (principal); R53.83 Other fatigue; R55 Syncope and collapse; Z00.00 Encounter for general adult medical examination without abnormal findings
CPT/HCPCS: 36415; 80053; 80061; 83735; 84439; 84443; 85027

== ENCOUNTER → 2023-02-09 15:08 | Outpatient (CLI) | payer OTHER, MEDICAID, SELFPAY | PROVIDERS: PCP Registered Nurse Diabetes Educator; Referring Provider Registered Nurse Diabetes Educator; Visit Provider Registered Nurse Diabetes Educator | DX: R55 Syncope and collapse (principal) | CPT/HCPCS: 93242 ==

== ENCOUNTER → 2023-02-26 13:15 | Outpatient (CLI) | payer OTHER, MEDICAID, SELFPAY ==
--- NOTE | 2023-02-26 13:16 | DI.MRI.S_ITS ---
PROCEDURE: MR HEAD/BRAIN WO CON INDICATIONS: possible seizures TECHNIQUE: Noncontrast axial T1 spin echo, axial T2 fast spin echo, sagittal and axial FLAIR, axial gradient echo, axial diffusion and ADC, coronal thin-slice T2 FSE through the brain. COMPARISON: [facility], MR, BRAIN WITHOUT CONTRAST, 02/27/2015, 7:58. FINDINGS: Image quality: Excellent. CSF spaces: Ventricles are normal in size and shape. Basal cisterns are patent. No extra-axial fluid collections. Brain: No intracranial bleeds or mass effects. [place]-white matter interface appears intact. Diffusion weighted images demonstrate no acute ischemic insults. Brainstem appear normal. Normal intravascular flow voids are present. The hippocampal regions appear normal and symmetric in morphology. Skull and face: Calvarial marrow signal is normal. Orbits appear normal. Sinuses: Mild mucosal thickening can be seen within the paranasal sinuses. No abnormal fluid is seen within the mastoid air cells. IMPRESSION: Normal brain MRI for age, without a cause of seizures identified. The hippocampi demonstrate a normal, symmetric appearance. Brain MRI within normal limits. Dictated by: Julián Genao M.D. on 02/26/2023 at 14:12 Approved by: Julián Genao M.D. on 02/26/2023 at 14:13
== END ==
PROVIDERS: PCP Registered Nurse Diabetes Educator; Referring Provider Registered Nurse Diabetes Educator; Visit Provider Registered Nurse Diabetes Educator
DX: R40.4 Transient alteration of awareness (principal); R55 Syncope and collapse
CPT/HCPCS: 70551

== ENCOUNTER → 2023-06-17 12:21 | Outpatient (CLI) | payer OTHER, MEDICAID, SELFPAY | PROVIDERS: PCP Registered Nurse Diabetes Educator; Visit Provider Registered Nurse Diabetes Educator | DX: N94.9 Unspecified condition associated with female genital organs and menstrual cycle (principal) | CPT/HCPCS: 87210; 87220 ==